=== PATIENT | male | born 2000 | race Hispanic/Latino ===

== ENCOUNTER 2021-04-27 12:41 | Emergency (ER) | payer SELFPAY ==
[2021-04-27] MEDS ORDERED: Dexamethasone 4 MG TAB ONE (14:03)
== END 2021-04-27 14:11 | disposition home or self-care (01) ==
LOC: BURERS 12:41
DX: J01.90 Acute sinusitis, unspecified (principal)
CPT/HCPCS: 99283; J8540

== ENCOUNTER 2021-11-11 19:01 | Emergency (ER) | payer SELFPAY ==
[2021-11-11] MEDS ORDERED: Iopamidol 370 76% 100 ML VIAL FS ONE (19:02)
[2021-11-11] MEDS ORDERED: Ondansetron PF 4 MG/2 ML Vial ONE (20:11)
[2021-11-11] MEDS ORDERED: Ketorolac Tromethamine 30 MG/ML VIAL ONE (20:11)
[2021-11-11 20:12] LABS: #Basophils 0.1 thou/uL (0.0-0.2); #Eosinphils 0.3 thou/uL (0.0-0.7); #Monocytes 0.6 thou/uL (0.11-0.59); #Neutrophils 4.9 thou/uL (1.40-6.50); %Basophils 1.6 % (0.0-1.0); %Monocytes 7.5 % (0.0-10.0); %Neutrophils 61.9 % (42.0-75.0); Hemoglobin 17.5 g/dL (14.0-18.0); Mean Corpuscular HGB CONC 33.5 g/dL (32.0-36.0); Mean Corpuscular Hemoglobin 27.9 pg (27.0-31.0); Mean Corpuscular Volume 83.5 fL (78.0-98.0); Mean Platelet Volume 10.3 fL (7.4-10.4); Platelet Count 196 thou/uL (130-400); Red Blood Cell (RBC) Count 6.27 mill/uL (4.70-6.10)
[2021-11-11 20:30] LABS: ALT (SGPT) 73 U/L (8-55); AST (SGOT) 38 U/L (5-34); Albumin 4.4 g/dL (3.5-5.0); Alkaline Phosphatase 78 U/L (40-110); Anion Gap 14 mmol/L (10-20); BUN (Urea Nitrogen) 9 mg/dL (8.9-20.6); Bilirubin, Total 0.5 mg/dL (0.2-1.2); Calc. Creatinine Clearance 0 mL/min (70-130); Calcium 9.6 mg/dL (7.8-10.44); Carbon Dioxide 24 mmol/L (22-29); Chloride 105 mmol/L (98-107); Estimated GFR 131; Globulin 3.2 g/dL (2.4-3.5); Glucose 93 mg/dL (70-105); Lipase 18 U/L (8-78); Potassium 4.4 mmol/L (3.5-5.1); Protein, Total 7.6 g/dL (6.0-8.3); Sodium 139 mmol/L (136-145)
[2021-11-11 20:55] LABS: Bilirubin Negative (Negative); Blood, Urine Negative (Negative); Clarity Clear (Clear); Glucose, Urine (Dipstick) Negative (Negative); Ketone, Urine Negative (Negative); Leukocyte Negative (Negative); Nitrite Negative (Negative); Protein, Urine (Dipstick) Negative (Neg-Trace); Urobilinogen 0.2 mg/dL (Less than 2)
== END 2021-11-11 21:17 | disposition home or self-care (01) ==
LOC: BURERS 19:01
DX: R10.84 Generalized abdominal pain (principal); R51.9 Headache, unspecified
CPT/HCPCS: 74177; 80053; 81003; 83690; 85025; 96374; 96375; J1885; J2405; Q9967

== ENCOUNTER 2024-01-04 17:19 | Emergency (ER) | payer SELFPAY ==
[2024-01-04] MEDS ORDERED: Albuterol 200 PUFF (6.7GM INHALER) ONE (17:38)
[2024-01-04] MEDS ORDERED: Dexamethasone 10 MG/ML VIAL ONE (17:40)
== END 2024-01-04 17:57 | disposition home or self-care (01) ==
LOC: BURERS 17:19
DX: J45.901 Unspecified asthma with (acute) exacerbation (principal)
CPT/HCPCS: J1100

== ENCOUNTER 2024-04-25 20:33 | Emergency (ER) | payer SELFPAY ==
[2024-04-25] MEDS ORDERED: Ipratropium Bromide 2.5 ml Neb ONE (21:22)
[2024-04-25] MEDS ORDERED: Dexamethasone 10 MG/ML VIAL ONE (21:22)
[2024-04-25] MEDS ORDERED: Albuterol 2.5 MG (0.5 mL) NEB ONE (21:22)
== END 2024-04-25 22:55 | disposition home or self-care (01) ==
LOC: BURERS 20:33
DX: J45.901 Unspecified asthma with (acute) exacerbation (principal); Z79.51 Long term (current) use of inhaled steroids
CPT/HCPCS: 71045; 87400; 87426; J1100; J7611; J7644